=== PATIENT | female | born 1945 | race African-American/Black ===

== ENCOUNTER 2017-01-17 16:07 | Emergency (ER) | payer MEDICARE ==
[~2017-01-17] VITALS: Ht 170.2 cm; Wt 95.5 kg
[~2017-01-17 16:07] MED LIST: AMLO5TAB22 PO; FLUO20TA20 PO; GALA4 PO; HYDR10SO PO; LEVO100T4 PO; OXYC1SOL5 PO; PROT40TA PO; RIVA10 PO; Z.0.CPM; Z.0.WALKERFRONT
[2017-01-17 16:09] VITALS: BP 146/81; PULSE 88; RESP 18; TEMP 98.3; O2SAT 100
--- NOTE | 2017-01-17 17:09 | PD ---
HPI Chief Complaint: Flank/Kidney Pain Time Seen by Provider: 16:54 Travel History International Travel<30 days: No Contact w/Intl Traveler<30days: No Traveled to known affect area: No History of Present Illness HPI 71-year-old female came to the emergency room with history of lower back pain that is chronic but recently worsened over past 2 days. She is pointing to her mid to lower back with radiation to bilateral flanks. Patient says she has been very uncomfortable with this pain. Slightest movement makes the pain worse. Bending over forwards makes the pain better. She has been diagnosed with kidney stones and gallbladder stones on x-rays recently. No history of vomiting or diarrhea. No history of fever or chills. She looks uncomfortable. Her friend drove her in. [facility] Past Medical History Narrative Medical List of her past medical, surgical, social and family history was reviewed from the nursing note. Anxiety: No Depression: Yes Cancer: No Cardiovascular Problems: Yes (HTN) Diabetes: No Endocrine: No GERD: Yes Genitourinary: Yes (NIGHTTIME FREQUENCY (NOCTURIA)) Hepatitis: No Hiatal Hernia: Yes Immune Disorder: No Musculoskeletal: Yes (ARTHRITIS (OSTEOARTHRITIS)) Neurologic: No (OCCASIONALLY GETS DISORIENTED) Psychiatric: Yes (DEPRESSION) Reproductive: No Respiratory: Yes (DIFFICULTY BREATHING) Thyroid Disease: Yes Past Surgical History Abdominal Surgery: No Body Medical Devices: NONE Cardiac Surgery: No Ear Surgery: No Endocrine Surgery: No Eye Surgery: No Genitourinary Surgery: No Gynecologic Surgery: Yes (TOTAL HYSTERECTOMY) Hysterectomy: Yes (TOTAL) Oral Surgery: No Thoracic Surgery: No Social History Tobacco Use: Yes Substance Use: No Allergies-Medications (Allergen,Severity, Reaction): Coded Allergies: Aleve (Verified Allergy, Severe, ITCHING, STOMACH UPSET, 01/17/17) Prilosec (Verified Allergy, Severe, Dizziness, 01/17/17) Sulfa (Verified Allergy, Severe, GASHES IN TONGUE, 01/17/17) Comments List of her allergies reviewed from the nursing note. Reported Meds & Prescriptions Reported Meds & Active Scripts Active Flexeril (Cyclobenzaprine HCl) 5 Mg Tab 5 Mg PO TID Ibuprofen 600 Mg Tab 600 Mg PO Q6H PRN Reported Benjamin (Hydrocodone-Acetaminophen) 5-325 mg Tab 1 Tab PO Q6H PRN Vitamin D-1000 (Cholecalciferol) 1,000 Unit Tab 3,000 Units PO HS Galantamine ER (Galantamine Hydrobromide) 8 Mg Caper 8 Mg PO HS Levoxyl (Levothyroxine Sodium) 100 Mcg Tab 100 Mcg PO DAILY Fluoxetine (Fluoxetine HCl) 20 Mg Cap 20 Mg PO DAILY Amlodipine (Amlodipine Besylate) 5 Mg Tab 5 Mg PO DAILY Zantac (Ranitidine HCl) 150 Mg Tab 150 Mg PO DAILY Narrative Medication List of her home medications reviewed from the nurse's note. Review of Systems Except as stated in HPI: all other systems reviewed are Neg Physical Exam Narrative GENERAL: Alert, anxious, moderate distress SKIN: Focused skin assessment warm/dry. HEAD: Atraumatic. Normocephalic. EYES: Pupils equal and round. No scleral icterus. No injection or drainage. ENT: No nasal bleeding or discharge. Mucous membranes pink and moist. NECK: Trachea midline. No JVD. CARDIOVASCULAR: Regular rate and rhythm. No murmur appreciated. RESPIRATORY: No accessory muscle use. Clear to auscultation. Breath sounds equal bilaterally. GASTROINTESTINAL: Abdomen soft, non-tender, nondistended. Hepatic and splenic margins not palpable. MUSCULOSKELETAL: No obvious deformities. No clubbing. No cyanosis. No edema. NEUROLOGICAL: Awake and alert. No obvious cranial nerve deficits. Motor grossly within normal limits. Normal speech. PSYCHIATRIC: Appropriate mood and affect; insight and judgment normal. Data Data Last Documented VS Vital Signs Date Time Temp Pulse Resp B/P Pulse Ox O2 Delivery O2 Flow Rate FiO2 01/17/17 18:30 68 16 154/95 97 Room Air 01/17/17 16:09 98.3 Orders Complete Blood Count With Diff (01/17/17 16:56) Comprehensive Metabolic Panel (01/17/17 17:03) Ct Abd/Pel W/O Iv Contrast (01/17/17 17:03) Iv Access Insert/Monitor (01/17/17 17:03) Ecg Monitoring (01/17/17 17:03) Oximetry (01/17/17 17:03) Ondansetron Inj (Zofran Inj) (01/17/17 17:15) Sodium Chloride 0.9% Flush (Ns Flush) (01/17/17 17:15) Ketorolac Inj (Toradol Inj) (01/17/17 17:15) Morphine Inj (Morphine Inj) (01/17/17 17:15) Labs Laboratory Tests Test 01/17/17 17:40 White Blood Count 8.2 TH/MM3 Red Blood Count 5.13 MIL/MM3 Hemoglobin 12.9 GM/DL Hematocrit 41.1 % Mean Corpuscular Volume 80.3 FL Mean Corpuscular Hemoglobin 25.2 PG Mean Corpuscular Hemoglobin 31.4 % Concent Red Cell Distribution Width 15.9 % Platelet Count 159 TH/MM3 Mean Platelet Volume 10.7 FL Neutrophils (%) (Auto) 68.6 % Lymphocytes (%) (Auto) 21.2 % Monocytes (%) (Auto) 8.8 % Eosinophils (%) (Auto) 0.9 % Basophils (%) (Auto) 0.5 % Neutrophils # (Auto) 5.6 TH/MM3 Lymphocytes # (Auto) 1.7 TH/MM3 Monocytes # (Auto) 0.7 TH/MM3 Eosinophils # (Auto) 0.1 TH/MM3 Basophils # (Auto) 0.0 TH/MM3 CBC Comment DIFF FINAL Differential Comment Sodium Level 141 MEQ/L Potassium Level 4.1 MEQ/L Chloride Level 105 MEQ/L Carbon Dioxide Level 29.8 MEQ/L Anion Gap 6 MEQ/L Blood Urea Nitrogen 17 MG/DL Creatinine 0.82 MG/DL Estimat Glomerular Filtration 83 ML/MIN Rate Random Glucose 89 MG/DL Calcium Level 8.9 MG/DL Total Bilirubin 0.2 MG/DL Aspartate Amino Transf 14 U/L (AST/SGOT) Alanine Aminotransferase 17 U/L (ALT/SGPT) Alkaline Phosphatase 105 U/L Total Protein 7.8 GM/DL Albumin 3.7 GM/DL MDM Medical Decision Making Medical Screen Exam Complete: Yes Emergency Medical Condition: Yes Medical Record Reviewed: Yes Differential Diagnosis Renal calculi, musculoskeletal pain Narrative Course 5:18 PM eating for the blood test and CAT scan to be done and resulted. Patient has been ordered for pain medication. 5:50 PM CAT scan result is back. Shows renal cyst and nonobstructing renal calculi. No other abnormalities. Awaiting for the blood test results and UA. 6:57 PM blood test results of back and within normal limit. I'll discharge her. Procedures EKG Prior to Arrival: No Diagnosis Primary Impression: Musculoskeletal pain Referrals: Primary Care Physician 2 days Additional Instructions: Please return to the ER if the condition worsens or any other new concerns. Otherwise follow-up with your primary care. Take the medications as per the prescription direction. The muscle relaxant will make you groggy. Not drive while on the medications. Med/Other Pt SpecificInfo: Prescription(s) given Scripts Cyclobenzaprine (Flexeril)5 Mg Tab5 Mg PO TID #15 TAB Ref 0 Prov:Horacio Mallory MD 01/17/17 Ibuprofen 600 Mg Peo121 Mg PO Q6H PRN (Pain/Inflammation) #40 TAB Ref 0 Prov:Horacio Mallory MD 01/17/17 Disposition: 01 DISCHARGE HOME Condition: Stable Horacio Mallory MD Jan 17, 2017 17:09
[2017-01-17] MEDS ORDERED: ONDANSETRON HCL 4 MG/2 ML VIAL IVP ONE (17:15)
[2017-01-17] MEDS ORDERED: KETOROLAC TROMETHAMINE 30 MG/ML (IVP) VIAL IVP ONE (17:15)
[2017-01-17] MEDS ORDERED: SODIUM CHLORIDE 0.9% FLUSH 10 ML FLUSH IV FLUSH PRN (17:15)
[2017-01-17] MEDS ORDERED: MORPHINE SULFATE 8 MG/ML INJ IV PUSH ONE (17:15)
[2017-01-17 17:30] VITALS: BP 165/108; PULSE 81; RESP 18; O2SAT 98
--- NOTE | 2017-01-17 17:35 | RADRPT ---
EXAM DATE/TIME: 01/17/2017 17:19 [facility] COMPARISON: No previous studies available for comparison. INDICATIONS : Bilateral flank pain today. ORAL CONTRAST: No oral contrast ingested. RADIATION DOSE: 13.49 CTDIvol (mGy) MEDICAL HISTORY : Cardiovascular disease. Hypertension. SURGICAL HISTORY : Hysterectomy. ENCOUNTER: Initial ACUITY: 1 day PAIN SCALE: 8/10 LOCATION: Bilateral flank TECHNIQUE: Volumetric scanning of the abdomen and pelvis was performed. Using automated exposure control and ad justment of the mA and/or kV according to patient size, radiation dose was kept as low as reasonably achievable to obtain optimal diagnostic quality images. FINDINGS: There are 2 simple cysts in the liver, right lobe posteriorly measuring 2.2 cm, and left lobe medial segment measuring 1.6 cm. Gallbladder, spleen, adrenal glands, pancreas unremarkable. Urinary bladder unremarkable. The patient is status post hysterectomy. No adnexal masses. No evidence of outlet obst ruction. There are small fat containing inguinal hernias. Appendix normal. No adenopathy or aneurysm. There are bilateral renal cysts identified, the largest at the midpole left kidney measured 4.4 cm, and the largest at the right midpole measuring 8.2 cm, parapelvic in nature. There are non-obstructin g calculi present within the right kidney at the midpole measuring 4.1 mm on image 54, 6.4 mm on imag e 64 the lower pole. There is mild distention of the right upper pole collecting system. There are de generative changes of the lumbar spine. Lung bases are clear. CONCLUSION: 1. Nonobstructing right renal calculi are noted. 2. Bilateral renal cysts. 3. Hepatic cysts. 4. No inflammatory changes are seen within the abdomen or pelvis. Johnathon Romano MD on January 17, 2017 at 17:30 Board Certified Radiologist. This report was verified electronically.
[2017-01-17] MEDS ORDERED: GALA8CAP PO (17:51)
[2017-01-17] MEDS ORDERED: VITA1000 PO (17:51)
[2017-01-17] MEDS ORDERED: FLUO20CA4 PO (17:51)
[2017-01-17] MEDS ORDERED: AMLO5TAB2 PO (17:51)
[2017-01-17] MEDS ORDERED: LEVO100T63 PO (17:51)
[2017-01-17] MEDS ORDERED: ZANT150T2 PO (17:51)
[2017-01-17] MEDS ORDERED: NORC5TAB PO (17:53)
[2017-01-17 18:18] LABS: ANION GAP 6 MEQ/L (5-15); AST (GOT) 14 U/L (15-37); BICARBONATE 29.8 MEQ/L (21.0-32.0); BLOOD UREA NITROGEN 17 MG/DL (7-18); CHLORIDE 105 MEQ/L (98-107); GLOMERULAR FILTRATION RATE 83 ML/MIN (>89); POTASSIUM 4.1 MEQ/L (3.5-5.1); SODIUM (NA) 141 MEQ/L (136-145)
[2017-01-17 18:21] LABS: ALKALINE PHOSPHATASE 105 U/L (45-117); ALT (GPT) 17 U/L (10-53); TOTAL BILIRUBIN ADULT 0.2 MG/DL (0.2-1.0)
[2017-01-17 18:30] VITALS: BP 154/95; PULSE 68; RESP 16; O2SAT 97
[2017-01-17 18:54] LABS: AUTOMATED NEUTROPHIL # 5.6 TH/MM3 (1.8-7.7); BASOPHIL % 0.5 % (0.0-2.0); EOSINOPHIL # 0.1 TH/MM3 (0-0.4); EOSINOPHIL % 0.9 % (0.0-4.0); HEMATOCRIT 41.1 % (35.0-46.0); HEMO FLAGS DIFF FINAL; LYMPH % 21.2 % (9.0-44.0); LYMPHOCYTE # 1.7 TH/MM3 (1.0-4.8); MEAN CELL VOLUME 80.3 FL (80.0-100.0); MEAN CORPUSCULAR HEMOGLOBIN 25.2 PG (27.0-34.0); MEAN CORPUSCULAR HGB CONC 31.4 % (32.0-36.0); MONO % 8.8 % (0.0-8.0); NEUT % 68.6 % (16.0-70.0); PLATELET COUNT 159 TH/MM3 (150-450); RED BLOOD COUNT 5.13 MIL/MM3 (4.00-5.30); RED CELL DISTRIBUTION WIDTH 15.9 % (11.6-17.2); WHITE BLOOD COUNT 8.2 TH/MM3 (4.0-11.0)
[2017-01-17] MEDS ORDERED: CYCL5TAB PO (19:00)
[2017-01-17] MEDS ORDERED: IBUP-232 PO (19:00)
== END 2017-01-17 19:13 | disposition home or self-care (01) ==
LOC: NEPD 16:07
DX: M79.1 Myalgia (principal); I10 Essential (primary) hypertension; K21.9 Gastro-esophageal reflux disease without esophagitis; M54.5 Low back pain; G89.29 Other chronic pain; E07.9 Disorder of thyroid, unspecified; Z72.0 Tobacco use
CPT/HCPCS: 74176; 80053; 85025; 96374; 96375; 99284; J1885; J2270; J2405